=== PATIENT | male | born 1955 | race Caucasian/White ===

== ENCOUNTER → 2020-02-01 | Outpatient (CLI) | payer OTHER ==
--- NOTE | 2020-02-02 10:15 | CT ---
EXAMINATION TYPE: CT urogram wo/w con DATE OF EXAM: 02/01/2020 COMPARISON: None INDICATION: Gross hematuria DLP: 2639.90 mGycm, Automated exposure control for dose reduction was used. CONTRAST: 100 mL of Isovue 300. Study performed without Oral Contrast TECHNIQUE: Axial images were obtained from above the diaphragm to the pubic rami in the axial plane a t 5 mm thick sections. Reconstructed images are reviewed on the computer in the coronal plane. FINDINGS: Limited CT sections are obtained the lung bases. The lung bases are clear. CT ABDOMEN: Three-D reconstructed images are reviewed. There may be filling defects within the proximal right jesús al pelvis on the reconstructed images and possibly within an infundibulum inferior pole left kidney. However, on the source images these could not be reproduced may be artifact from reconstruction. This is supported as these defects appear to resolve on rotation. Liver: There is a large hepatic cyst measuring 10.2 cm and 4 Hounsfield units. Spleen: Normal Pancreas: Normal Adrenal glands: The adrenal glands are normal. Gallbladder: Normal Kidneys: No masses are evident. No hydronephrosis is present. Tiny cortical renal cysts on the mid posterior lateral right kidney on delayed images. Aorta: Vascular calcification is within the aorta. Inferior vena cava: Normal. CT PELVIS: Loops of bowel within the abdomen and pelvis are normal. This study is without oral contrast limi ting bowel evaluation. Appendix: Normal as visualized. 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 The ureter appears to pass through thi s region. Genitourinary structures: Prostate is somewhat full. Osseous structures: No suspicious lytic or sclerotic lesions. IMPRESSIONS: 1. Urinary bladder diverticulum with adjacent nondilated ureter. 2. Large simple appearing hepatic cyst. 3. Few tiny cortical renal cysts may be present. These are too small to classify as simple. 4. No suspicious abnormality to account for gross hematuria. Consider additional workup.
== END | disposition home or self-care (01) ==
LOC: RADCTMAIN 15:25
PROVIDERS: ATTEND Urology
DX: N32.3 Diverticulum of bladder (principal); K76.89 Other specified diseases of liver; R31.0 Gross hematuria
CPT/HCPCS: 82565; 84520; 74178; 36415; 74400; Q9967